=== PATIENT | female | born 1985 | race Caucasian/White ===

== ENCOUNTER → 2018-01-13 | Outpatient (CLI) | payer OTHER ==
[2018-01-13 13:12] LABS: BASO % 0.3 % (0.0-1.0); EOS # 0.1 10^3/uL (0.0-0.50); EOS % 0.9 % (0.0-3.0); HEMATOCRIT 37.1 % (36.0-47.0); HEMOGLOBIN 12.7 g/dl (12.0-15.5); IMMATURE GRANULOCYTE % 0.2 % (0-3.0); LYMPH # 1.4 10^3/uL (1.5-4.5); LYMPH % 23.7 % (24.0-44.0); MEAN CORPUSCULAR HEMOGLOBIN 29.3 pg (27.0-33.0); MEAN CORPUSCULAR HGB CONC 34.2 g/dl (32.0-36.5); MEAN CORPUSCULAR VOLUME 85.5 fl (80.0-96.0); MONO # 0.4 10^3/uL (0.0-0.8); MONO % 6.4 % (0.0-5.0); NEUTROPHILS % 68.5 % (36.0-66.0); PLATELET COUNT, AUTOMATED 240 10^3/uL (150-450); RED BLOOD COUNT 4.34 10^6/uL (4.00-5.40); RED CELL DISTRIBUTION WIDTH 12.7 % (11.5-14.5); WHITE BLOOD COUNT 5.8 10^3/uL (4.0-10.0)
[2018-01-13 14:39] LABS: CHLAMYDIA DNA AMPLIFICATION NEGATIVE (NEGATIVE); GC DNA AMPLIFICATION NEGATIVE (NEGATIVE)
[2018-01-15 09:29] LABS: HBsAg Prenatal NEGATIVE (NEGATIVE); RUBELLA IgG QUALITATIVE IMMUNE (IMMUNE)
[2018-01-15 09:52] LABS: HEPATITIS C VIRUS ABY INDEX < 0.0 INDEX (<0.8)
[2018-01-15 11:04] LABS: HIV 1&2 SCREEN CENTAUR NEGATIVE (NEGATIVE)
== END ==
LOC: M WUC 10:50
DX: O30.041 Twin pregnancy, dichorionic/diamniotic, first trimester (principal); Z3A.08 8 weeks gestation of pregnancy
CPT/HCPCS: 86762

== ENCOUNTER → 2018-02-16 | Outpatient (CLI) | payer OTHER | LOC: M SMT 09:36 | DX: Z13.79 Encounter for other screening for genetic and chromosomal anomalies (principal) ==

== ENCOUNTER → 2018-04-23 | Outpatient (CLI) | payer OTHER | LOC: M RAD 10:03 | DX: O30.042 Twin pregnancy, dichorionic/diamniotic, second trimester (principal); Z3A.23 23 weeks gestation of pregnancy | CPT/HCPCS: 76811 ==

== ENCOUNTER → 2018-05-10 | Outpatient (CLI) | payer OTHER ==
[2018-05-10 10:59] LABS: HEMOGLOBIN 11.5 g/dl (12.0-15.5); MEAN CORPUSCULAR HEMOGLOBIN 30.7 pg (27.0-33.0); MEAN CORPUSCULAR HGB CONC 33.8 g/dl (32.0-36.5); MEAN CORPUSCULAR VOLUME 90.7 fl (80.0-96.0); PLATELET COUNT, AUTOMATED 200 10^3/uL (150-450); RED BLOOD COUNT 3.75 10^6/uL (4.00-5.40); RED CELL DISTRIBUTION WIDTH 12.8 % (11.5-14.5); WHITE BLOOD COUNT 5.6 10^3/uL (4.0-10.0)
[2018-05-10 11:44] LABS: GLUCOSE CHALLENGE TEST 1 HOUR 137 MG/DL (LESS THAN 140)
== END ==
LOC: M LAB 08:52
DX: O30.042 Twin pregnancy, dichorionic/diamniotic, second trimester (principal); Z3A.26 26 weeks gestation of pregnancy
CPT/HCPCS: 82950

== ENCOUNTER → 2018-05-17 | Outpatient (CLI) | payer OTHER ==
[2018-05-17 08:52] LABS: GLUCOSE, FASTING 60 MG/DL (LESS THAN 95)
[2018-05-17 11:13] LABS: 1 HR GLUCOSE 173 MG/DL (LESS THAN 180)
[2018-05-17 12:17] LABS: 2 HR GLUCOSE 167 MG/DL (LESS THAN 155)
[2018-05-17 12:34] LABS: 3 HR GLUCOSE 126 MG/DL (LESS THAN 140)
== END ==
LOC: M LAB 08:11
DX: O30.042 Twin pregnancy, dichorionic/diamniotic, second trimester (principal); Z3A.00 Weeks of gestation of pregnancy not specified
CPT/HCPCS: 82951

== ENCOUNTER → 2018-05-21 | Outpatient (CLI) | payer OTHER | LOC: M RAD 14:10 | DX: O30.042 Twin pregnancy, dichorionic/diamniotic, second trimester (principal); Z3A.27 27 weeks gestation of pregnancy | CPT/HCPCS: 76816 ==

== ENCOUNTER → 2018-06-11 | Outpatient (CLI) | payer OTHER | LOC: M RAD 13:09 | DX: O30.042 Twin pregnancy, dichorionic/diamniotic, second trimester (principal); Z3A.30 30 weeks gestation of pregnancy; O32.1XX2 Maternal care for breech presentation, fetus 2 | CPT/HCPCS: 76816 ==

== ENCOUNTER → 2018-07-02 | Outpatient (CLI) | payer OTHER | LOC: M RAD 08:19 | DX: O30.042 Twin pregnancy, dichorionic/diamniotic, second trimester (principal); Z3A.33 33 weeks gestation of pregnancy | CPT/HCPCS: 76816 ==

== ENCOUNTER 2018-07-20 13:26 | Outpatient (CLI) | payer OTHER ==
[2018-07-20] MEDS: BETAMETHASONE SOLUSPAN 6MG/ML INJ 5ML (J0702) IM ×2 (14:49)
== END 2018-07-20 15:22 | disposition home or self-care (01) ==
LOC: M LAB REF 13:26 → M LDO 14:12 → M LDI 14:13 → M LDO 15:22
DX: O30.043 Twin pregnancy, dichorionic/diamniotic, third trimester (principal); Z3A.35 35 weeks gestation of pregnancy
CPT/HCPCS: J0702

== ENCOUNTER 2018-07-21 14:37 | Outpatient (CLI) | payer OTHER ==
[2018-07-21] MEDS: BETAMETHASONE SOLUSPAN 6MG/ML INJ 5ML (J0702) IM (15:00)
== END 2018-07-21 15:30 | disposition home or self-care (01) ==
LOC: M LDO 14:37
DX: O30.043 Twin pregnancy, dichorionic/diamniotic, third trimester (principal); Z3A.35 35 weeks gestation of pregnancy
CPT/HCPCS: J0702

== ENCOUNTER → 2018-07-23 | Outpatient (CLI) | payer OTHER | LOC: M RAD 08:41 | DX: O30.042 Twin pregnancy, dichorionic/diamniotic, second trimester (principal); Z3A.36 36 weeks gestation of pregnancy | CPT/HCPCS: 76816 ==

== ENCOUNTER 2018-08-03 14:07 | Inpatient (IN) | payer OTHER ==
[2018-08-03 15:46] LABS: HEMATOCRIT 38.4 % (36.0-47.0); HEMOGLOBIN 12.9 g/dl (12.0-15.5); MEAN CORPUSCULAR HEMOGLOBIN 28.6 pg (27.0-33.0); MEAN CORPUSCULAR HGB CONC 33.6 g/dl (32.0-36.5); MEAN CORPUSCULAR VOLUME 85.1 fl (80.0-96.0); PLATELET COUNT, AUTOMATED 178 10^3/uL (150-450); RED BLOOD COUNT 4.51 10^6/uL (4.00-5.40); RED CELL DISTRIBUTION WIDTH 12.7 % (11.5-14.5); WHITE BLOOD COUNT 5.9 10^3/uL (4.0-10.0)
[2018-08-03] MEDS ORDERED: FENTANYL 2MCG/ML ROPIVACAINE 0.2% IN 0.9% NACL 200ML IVBAG As Ordered (16:42)
[2018-08-03] MEDS: LR 1,000 ML IV (17:40)
[2018-08-03] MEDS: LACTATED RINGER'S 1000 ML IV (17:40)
[2018-08-03] MEDS ORDERED: ePHEDrine SULFATE 25 MG/5 ML(5MG/ML) SYRINGE IV (18:15)
[2018-08-03] MEDS ORDERED: REFRIGERATOR IV KEYS XX (18:15)
[2018-08-03] MEDS ORDERED: diphenhydrAMINE INJ 50MG/ML VIAL (J1200) IV (18:15)
[2018-08-03] MEDS ORDERED: EPIDURAL COMMENT XX (18:15)
[2018-08-03] MEDS ORDERED: EPIDURAL/PCA KEYS XX (18:15)
[2018-08-03] MEDS ORDERED: NALOXONE INJ 0.4 MG/1 ML VIAL (J2310) IV (18:15)
[2018-08-03] MEDS: FENTANYL/ROPIVACAINE/NACL BAG 200 ML EPIDURAL (18:15)
[2018-08-03] MEDS ORDERED: ONDANSETRON 4MG/2ML VIAL (J2405) IV ×2 (18:15→22:30)
[2018-08-03] MEDS ORDERED: LACTATED RINGER'S 1000 ML IV (18:15)
[2018-08-03] MEDS: OXYTOCIN DRIP 30 UNITS in APPROPRIATE DILUENT 1 EA IV (19:19)
[2018-08-03] MEDS ORDERED: MEASLES,MUMPS,RUBELLA VACCINE INJ (MMR-II) (90707) SC (22:30)
[2018-08-03] MEDS ORDERED: OXYTOCIN DRIP 30 UNITS in APPROPRIATE DILUENT 1 EA IV (22:30)
[2018-08-03] MEDS ORDERED: RHOGAM 300 MCG (1500 IU) INJ (J2790) IM (22:30)
[2018-08-03] MEDS ORDERED: ACETAMINOPHEN 500 MG TAB PO (22:30)
[2018-08-03] MEDS ORDERED: DOCUSATE SODIUM 100 MG CAP PO (22:30)
[2018-08-03] MEDS ORDERED: DIBUCAINE 1% OINTMENT 30GM TOP (22:30)
[2018-08-03] MEDS ORDERED: METHYLERGONOVINE MALEATE 0.2 MG TAB PO (22:30)
[2018-08-04] MEDS: IBUPROFEN 800 MG TAB PO ×3 (03:18→23:08)
[2018-08-04] MEDS: PRENATAL VITAMINS CHEWABLE TABLET PO (08:22)
[2018-08-05] MEDS: PRENATAL VITAMINS CHEWABLE TABLET PO (09:00)
== END 2018-08-05 11:00 | disposition home or self-care (01) | DRG 807 ==
LOC: M LDI 14:07 → M OBS 23:42
PROVIDERS: Advanced Practice Midwife
PROC: 10E0XZZ Delivery of Products of Conception, External Approach (ICD-10-PCS; principal; 2018-08-03)
PROC: 0KQM0ZZ Repair Perineum Muscle, Open Approach (ICD-10-PCS; 2018-08-03)
DX: O34.211 Maternal care for low transverse scar from previous cesarean delivery (principal); Z37.2 Twins, both liveborn; Z3A.37 37 weeks gestation of pregnancy; O30.043 Twin pregnancy, dichorionic/diamniotic, third trimester; O70.1 Second degree perineal laceration during delivery